=== PATIENT | male | born 1980 ===

== ENCOUNTER 2018-08-23 21:17 | Emergency (ER) | payer SELFPAY ==
[2018-08-23 21:28] VITALS: BMI 25.1
--- NOTE | 2018-08-23 21:49 | ED PDOC ---
HPI: Psych/Substance Abuse Time Seen by Provider: 08/23/18 21:40 Chief Complaint (Nursing): Alcohol Ingestion Chief Complaint (Provider): alcohol ingestion History Per: Patient History/Exam Limitations: no limitations Onset/Duration Of Symptoms: Days (1x) Current Symptoms Are (Timing): Still Present Modifying Factor(s): Alcohol Severity: Moderate Additional Complaint(s): 38 year old male with no pertinent past medical history is brought into the ED by EMS for alcohol intoxication. Patient states that he drank a lot today, and was having difficulty walking prior to arrival. Patient denies having any other complaints. PMD: None provided. Past Medical History Reviewed: Historical Data, Nursing Documentation, Vital Signs Vital Signs: Last Vital Signs Temp 98.1 F 08/23/18 21:29 Pulse 60 08/23/18 21:29 Resp 16 08/23/18 21:29 BP 155/107 H 08/23/18 21:29 Pulse Ox 100 08/23/18 21:29 LUCERO Report Viewed: Yes - Medical History PMH: No Chronic Diseases - Family History Family History: States: No Known Family Hx - Social History Alcohol: > 2 Drinks/Day (today) - Allergies Allergies/Adverse Reactions: Allergies Allergy/AdvReac Type Severity Reaction Status Date / Time No Known Allergies Allergy Verified 08/23/18 21:28 Review of Systems ROS Statement: Except As Marked, All Systems Reviewed And Found Negative Neurological: Positive for: Other (difficulty walking) Physical Exam - Reviewed Nursing Documentation Reviewed: Yes Vital Signs Reviewed: Yes - Physical Exam Appears: Positive for: Well, Non-toxic, No Acute Distress Head Exam: Positive for: ATRAUMATIC, NORMOCEPHALIC Skin: Positive for: Normal Color, Warm, Dry Eye Exam: Positive for: Normal appearance Cardiovascular/Chest: Positive for: Regular Rate, Rhythm Respiratory: Positive for: Normal Breath Sounds Neurological/Psych: Positive for: Awake, Alert, Oriented (3x), Mood/Affect (calm, cooperative), Gait (steady, unassisted). Negative for: Other (slurrd speech) - ECG O2 Sat by Pulse Oximetry: 100 (RA) Pulse Ox Interpretation: Normal - Progress ED Course And Treament: PATIENT NOTED WITH STEADY GAIT. Medical Decision Making Medical Decision Makin:40 Initial impression: 38 year old male with alcohol intoxication Initial plan: * alcohol serum * accucheck * reevaluation Scribe Attestation: Documented by Giuliana Croft, acting as a scribe for Donte Diggs PA-C. Provider Scribe Attestation: All medical record entries made by the Scribe were at my direction and personally dictated by me. I have reviewed the chart and agree that the record accurately reflects my personal performance of the history, physical exam, medical decision making, and the department course for this patient. I have also personally directed, reviewed, and agree with the discharge instructions and disposition. Disposition - Clinical Impression Clinical Impression: Alcohol abuse with intoxication - Patient ED Disposition Is Patient to be Admitted: No - Disposition Referrals: [facility] [Outside] Disposition: Routine/Home Disposition Time: 23:43 Condition: FAIR Instructions: Effects of Alcohol on Your Health Print Language: SLOVENIAN
[2018-08-23 23:49] VITALS: BP 95/52; PULSE 63; RESP 18; TEMP 98; O2SAT 99
== END 2018-08-23 23:57 | disposition home or self-care (01) ==
LOC: H.ER 21:17
DX: F10.129 Alcohol abuse with intoxication, unspecified (principal)

== ENCOUNTER 2018-08-24 06:40 | Emergency (ER) | payer SELFPAY ==
[2018-08-24 06:40] VITALS: BMI 25.1
[2018-08-24 06:46] VITALS: RESP 18; TEMP 98; O2SAT 100
--- NOTE | 2018-08-24 07:05 | ED PDOC ---
HPI: Psych/Substance Abuse Time Seen by Provider: 08/24/18 06:57 Chief Complaint (Nursing): Alcohol Ingestion History Per: EMS Onset/Duration Of Symptoms: Unknown Current Symptoms Are (Timing): Still Present Suicide/Self Injury Attempted (Context): None Modifying Factor(s): Alcohol Associated Symptoms: denies: Suicidal Thoughts Additional Complaint(s): Brought by EMS found sleeping in street, admits to ETOH ingestion. denies injury. Past Medical History Vital Signs: Last Vital Signs Temp 98 F 08/24/18 06:44 Pulse 62 08/24/18 06:44 Resp 18 08/24/18 06:44 BP 114/77 08/24/18 06:44 Pulse Ox 100 08/24/18 06:44 - Medical History PMH: No Chronic Diseases - Family History Family History: States: Unknown Family Hx - Allergies Allergies/Adverse Reactions: Allergies Allergy/AdvReac Type Severity Reaction Status Date / Time No Known Allergies Allergy Verified 08/23/18 21:28 Review of Systems Review Of Systems: ROS cannot be obtained secondary to pt's inabilty to answer questions. Physical Exam - Reviewed Nursing Documentation Reviewed: Yes Vital Signs Reviewed: Yes - Physical Exam Appears: Positive for: Non-toxic, No Acute Distress Head Exam: Positive for: ATRAUMATIC, NORMAL INSPECTION, NORMOCEPHALIC Skin: Positive for: Normal Color, Warm, DRY Eye Exam: Positive for: EOMI, Normal appearance, PERRL ENT: Positive for: Normal ENT Inspection Neck: Positive for: Normal, Painless ROM Cardiovascular/Chest: Positive for: Regular Rate, Rhythm Respiratory: Positive for: CNT, Normal Breath Sounds Gastrointestinal/Abdominal: Positive for: Normal Exam, Soft Back: Positive for: Normal Inspection Extremity: Positive for: Normal ROM Neurological/Psych: Positive for: Normal Tone. Negative for: Awake (somnolent, arousable), Motor/Sensory Deficits - ECG O2 Sat by Pulse Oximetry: 100 - Progress Re-evaluation Time: 09:49 Condition: Improved (Awake alert oriented x 3 No focal neuro deficits) Disposition - Clinical Impression Clinical Impression: Alcohol abuse - Patient ED Disposition Is Patient to be Admitted: No Counseled Patient/Family Regarding: Diagnosis, Need For Followup - Disposition Referrals: [facility] [Outside] Disposition: Routine/Home Disposition Time: 09:49 Condition: FAIR Instructions: Alcohol Use - When Is Drinking a Problem? Forms: [place] [employer] (French) Print Language: FRENCH
[2018-08-24 10:37] VITALS: BP 110/70; PULSE 68
== END 2018-08-24 10:30 | disposition home or self-care (01) ==
LOC: H.ER 06:40
DX: F10.10 Alcohol abuse, uncomplicated (principal); Y90.8 Blood alcohol level of 240 mg/100 ml or more; Z00.8 Encounter for other general examination
CPT/HCPCS: 82948; 99284; G0480